=== PATIENT | female | born 1965 | race Caucasian/White ===

== ENCOUNTER 2024-05-25 10:00 | Day surgery (SDC) | payer OTHER ==
[~2024-05-25 10:00] MED LIST: DEXAMETHASONE SOD PHOSPHATE 4 MG/ML 1 ML VIAL ONE; MIDAZOLAM 2 MG/2 ML VIAL ONE; ONDANSETRON 4 MG/2 ML VIAL ONE; ROPIVACAINE 5 MG/ML 30 ML VIAL ONE; fentaNYL (PF) 50 MCG/ML 2 ML AMP ONE
[2024-05-25] MEDS ORDERED: DEXAMETHASONE SOD PHOSPHATE 4 MG/ML 1 ML VIAL ONE (10:27)
[2024-05-25] MEDS ORDERED: POTASSIUM CHLORIDE 20 MEQ/100 ML BAG IVPB ONE (12:30)
[2024-05-25] MEDS ORDERED: SODIUM CHLORIDE 0.9% 500 ML BAG ONE (12:30)
[2024-05-25] MEDS ORDERED: LACTATED RINGERS 1,000 ML BAG ONE (12:30)
[2024-05-25] MEDS ORDERED: ceFAZolin 1,000 MG VIAL ONE (12:30)
[2024-05-25] MEDS ORDERED: THROMBIN (BOVINE) 5,000 UNIT VIAL ONE (12:30)
[2024-05-25] MEDS ORDERED: fentaNYL (PF) 50 MCG/ML 2 ML AMP ONE (12:34)
[2024-05-25] MEDS ORDERED: ROPIVACAINE 5 MG/ML 30 ML VIAL ONE (12:34)
[2024-05-25] MEDS ORDERED: MIDAZOLAM 2 MG/2 ML VIAL ONE (12:34)
[2024-05-25] MEDS ORDERED: PROPOFOL 10 MG/ML 20 ML VIAL IV ONE (12:34)
[2024-05-25] MEDS ORDERED: KETAMINE HCL IN 0.9 % NACL 50 MG/5 ML SYRINGE ONE (12:34)
[2024-05-25] MEDS ORDERED: HEPARIN SODIUM,PORCINE 5,000 UNIT/ML 1 ML VIAL ONE (12:34)
--- NOTE | 2024-07-10 09:49 | P.OP ---
Date of Procedure: 05/25/24 Preoperative Diagnosis: Chronic kidney disease Postoperative Diagnosis: Same Procedure(s) Performed: Left upper extremity radiocephalic fistula creation Anesthesia: SANTHOSH Surgeon: Shravan Osorio Estimated Blood Loss (ml): 5 Pathology: none sent Condition: stable Disposition: PACU Description of Procedure: After written and informed consent was obtained from the patient the patient was brought to the operative suite and laid in a supine position. The left arm was prepped and draped in the usual sterile fashion after appropriate anesthesia was performed per the anesthesiologist. Utilizing ultrasound the cephalic vein was visualized and marked and shown to be good size. A small vertical incision was then created with a 15 blade scalpel just proximal to the wrist and dissection was carried down to the radial artery which was dissected free in a circumferential manner. Proximal distal control was then obtained with vessel loops. Attention was then placed back to the cephalic vein which was located and dissected free in a circumferential manner distally to the wrist. At the wrist it was ligated with silk suture. Further dissection was carried around the vein and the vein was brought over to the radial artery. Serial dilation was then performed on the vein and good backbleeding was noted. Patient was administered 3000 units of heparin and the radial artery was clamped at the proximal and distal aspect. Utilizing 11 blade scalpel and arteriotomy was created and extended with Pott Hayes scissors. There was good brisk backbleeding noted from the radial artery and pulsatile blood flow visualized from the proximal aspect. The vein was then spatulated and an end-to-side anastomosis was created with a 7-0 Prolene suture. Prior to last sutures being placed the control was released from the vein revealing good backbleeding and distal control on the radial artery was released revealing good back flow. The proximal control was then released and good pulsatile blood flow was visualized in the fistula and final sutures were secured. The area was copiously irrigated with antibiotic solution. Hemostasis was assured. The vessels were then interrogated with Doppler which demonstrated good multiphasic signal distal to the anastomosis as well as positive bruit within the vein consistent with good fistula creation. Under ultrasound there was pulsatile flow noted in the cephalic vein. The incision was then closed in a multilayer fashion. The skin was cleansed and dressings were placed. Patient does procedure well and was sent to PACU for recovery.
== END 2024-05-25 15:00 ==
LOC: OR 10:00
PROVIDERS: ATTEND Surgery
DX: N18.5 Chronic kidney disease, stage 5
CPT/HCPCS: 64415

== ENCOUNTER 2025-01-31 19:12 | Inpatient (IN) | payer OTHER ==
[2025-01-31 20:19] LABS: Basophils # (A) 0.03 10*3/uL (0.00-0.10); Basophils % (A) 0.5 %; Eosinophils # (A) 0.08 10*3/uL (0.04-0.35); Eosinophils % (A) 1.3 %; HCT 26.7 % (37.2-46.3); HGB 8.7 g/dL (12.0-15.0); Lymphocytes # (A) 0.64 10*3/uL (0.90-5.00); Lymphocytes % (A) 10.3 %; MCH 32.3 pg (27.0-32.0); MCHC 32.6 g/dL (32.0-37.0); MCV 99.3 fL (80.0-97.0); Mean Platelet Volume 10.8 fL (9.5-12.2); Monocytes # (A) 0.59 10*3/uL (0.20-1.00); Monocytes % (A) 9.5 %; Neutrophils # (A) 4.84 10*3/uL (1.80-7.70); Neutrophils % (A) 77.6 %; Platelet Count 178 10*3/uL (140-440); RBC 2.69 10*6/uL (4.10-5.20); RDW 14.6 % (11.5-14.5); WBC 6.23 10*3/uL (4.50-10.00)
--- NOTE | 2025-01-31 20:37 | ED ---
General Adult HPI - General Chief complaint: Shortness of Breath Stated complaint: Abn Labs Time Seen by Provider: 01/31/25 19:52 Source: patient, family Mode of arrival: ambulatory Limitations: no limitations - History of Present Illness Initial comments: Patient is a pleasant 59-year-old female, past medical history COPD, ESRD on dialysis Tuesday presenting today for shortness of breath and fever. Patient states that throughout the week she has had body aches and a dry cough nonproductive of sputum. Today ther home health nurse was checking on her and found her pulse ox to be 76 to 85% on room air. Patient does not wear oxygen at home. Patient's daughter was called and brought her to the hospital. Patient states today is her first day of fever. Last dose of Tylenol was at 10 AM this morning. Denies missed rounds of dialysis. She denies chest pain, changes in vision, focal numbness or weakness, abdominal pain, nausea, vomiting, diarrhea, dysuria, urinary frequency. Denies new lower extremity swelling. - Related Data Home Medications Medication Instructions Recorded Confirmed ALPRAZolam [Xanax] 0.25 mg PO BID PRN 02/01/25 02/01/25 Albuterol Sulfate [Albuterol 2 puff PO RT-Q4H PRN 02/01/25 02/01/25 Sulfate Hfa] Calcium Acetate [Phoslo] 667 mg PO TID-W/MEALS 02/01/25 02/01/25 Fluticasone Propionate [Flonase 1 spray EA NOSTRIL BID PRN 02/01/25 02/01/25 Allergy Relief] Metoprolol Tartrate [Lopressor] 50 mg PO BID 02/01/25 02/01/25 Mometasone/Formoterol [Dulera 100 2 puff INHALATION RT-BID 02/01/25 02/01/25 Mcg-5 Mcg Inhaler] Nicotine 21Mg/24Hr Patch [Habitrol] 1 patch TRANSDERM DAILY 02/01/25 02/01/25 Sertraline [Zoloft] 50 mg PO DAILY 02/01/25 02/01/25 Simvastatin [Zocor] 20 mg PO HS 02/01/25 02/01/25 Terazosin [Hytrin] 1 mg PO HS 02/01/25 02/01/25 Tiotropium 2.5 Mcg/Puff [Spiriva 2 puff INHALATION RT-DAILY 02/01/25 02/01/25 Respimat 2.5 Mcg] Torsemide [Demadex] 40 mg PO DAILY 02/01/25 02/01/25 allopurinoL [Zyloprim] 100 mg PO HS 02/01/25 02/01/25 amLODIPine [Norvasc] 5 mg PO DAILY 02/01/25 02/01/25 Allergies Allergy/AdvReac Type Severity Reaction Status Date / Time cefprozil [From Cefzil] Allergy Anaphylaxis Verified 02/01/25 10:20 cephalexin [From Keflex] Allergy Anaphylaxis Verified 02/01/25 10:20 ciprofloxacin [From Cipro] Allergy Anaphylaxis Verified 02/01/25 10:20 guaifenesin [From Entex [place]] Allergy Per Verified 02/01/25 10:20 [place] [facility] iodine Allergy Anaphylaxis Verified 02/01/25 10:20 phenylephrine [From Entex [place]] Allergy Per Verified 02/01/25 10:20 [place] [facility] phenylpropanolamine Allergy Per Verified 02/01/25 10:20 [From Entex [place]] [place] [facility] shellfish derived [Shellfish] Allergy Per Verified 02/01/25 10:20 [place] [facility] sodium bicarbonate Allergy Per Verified 02/01/25 10:20 [place] [facility] Review of Systems ROS Statement: Those systems with pertinent positive or pertinent negative responses have been documented in the HPI. ROS Other: All systems not noted in ROS Statement are negative. Past Medical History Past Medical History: COPD, Renal Disease Additional Past Medical History / Comment(s): HD MWF Additional Past Surgical History / Comment(s): dental, D&C Past Psychological History: No Psychological Hx Reported Smoking Status: Current every day smoker Past Alcohol Use History: None Reported Past Drug Use History: None Reported General Exam - General Exam Comments Initial Comments: PE: CONSTITUTIONAL: No apparent distress, ill-appearing, nontoxic SKIN: Warm, dry, no jaundice, hives or petechiae EYES: Pupils are equally round, extraocular movements intact without nystagmus, clear conjunctiva, non-icteric sclera HENT: Normocephalic, atraumatic, moist mucus membranes, oropharynx clear without exudates NECK: , Full range of motion, normal appearance PULMONARY: Rales and wheezes throughout the right lower and midlung field, scant wheezes in the bilateral lung donahue normal excursion, no accessory muscle use and no stridor CARDIOVASCULAR: Tachycardia, regular rate, rhythm, normal S1 and S2. No appreciated murmurs, rubs or gallops. Strong radial pulses with intact distal perfusion. No lower extremity edema GASTROINTESTINAL: Soft, active bowel sounds throughout, non-tender, non- distended, no palpable masses, no rebound or guarding. No hepatosplenomegaly GENITOURINARY: MUSCULOSKELETAL: Extremities have no gross deformity, no edema, redness, or swelling. No calf swelling NEUROLOGIC:_a/o x 3, GCS 15, normal mentation and speech. Moves all extremities x 4 without motor or sensory deficit PSYCHIATRIC:_normal mood and affect, thought process is clear and linear Limitations: no limitations Course Vital Signs 01/31/25 01/31/25 01/31/25 19:32 20:05 21:28 Temperature 101.4 F H Pulse Rate 104 H 75 Respiratory 18 22 Rate Blood Pressure 144/84 O2 Sat by Pulse 88 L Oximetry 01/31/25 01/31/25 01/31/25 21:50 21:52 22:06 Temperature Pulse Rate 78 80 82 Respiratory Rate Blood Pressure O2 Sat by Pulse Oximetry 01/31/25 23:19 Temperature 99.4 F Pulse Rate 99 Respiratory 18 Rate Blood Pressure 140/63 O2 Sat by Pulse 93 L Oximetry EKG Findings - EKG Comments: EKG Findings:: Sinus tachycardia, rate 102 bpm intervals within acceptable limits, normal axis, no ST elevations or depressions, some T wave flattening in the anterior leads no arrhythmia Medical Decision Making - Medical Decision Making Was pt. sent in by a medical professional or institution (, PA, MACHINE PULLER OVER, urgent care, hospital, or snf...) When possible be specific @ -No Did you speak to anyone other than the patient for history (EMS, parent, family, police, friend...)? What history was obtained from this source @I spoke with patient's daughter who provided history, stating patient's home health nurse called the patient's daughter and told her the patient's pulse ox between 76 to 85% Did you review nursing and triage notes (agree or disagree)? Why? @ -I reviewed and agree with nursing and triage notes Were old charts reviewed (outside hosp., previous admission, EMS record, old EKG, old radiological studies, urgent care reports/EKG's, snf records)? Report findings @ -Medical records reviewed- I reviewed patient's medical records to review whether or not patient has ever received zosyn in the past, to ensure pt has not had a hx of anaphylaxis to this, (given anaphylactic reactions to cephalosporins), however on medical record review it does not appear pt has received zosyn here in the past Differential Diagnosis (chest pain, altered mental status, abdominal pain women, abdominal pain men, vaginal bleeding, weakness, fever, dyspnea, syncope, headache, dizziness, GI bleed, back pain, seizure, CVA, palpatations, mental health, musculoskeletal)? Differential Dyspnea: Coronary syndrome, arrhythmia, tamponade, asthma, COPD, pulmonary embolism, pneumonia, pneumothorax, pulmonary effusion, anaphylaxis, diabetic ketoacidosis, flailed chest, pulmonary contusion, diaphragmatic rupture, anemia, neuromuscular, this is not meant to be an all-inclusive list. EKG interpreted by me (3pts min.). @ -As above X-rays interpreted by me (1pt min.). Please see my interpretation in MDM below CT interpreted by me (1pt min.). @ -None done U/S interpreted by me (1pt. min.). @ -None done What testing was considered but not performed or refused? (CT, X-rays, U/S, labs)? Why? @ -None What meds were considered but not given or refused? Why? @ -None Did you discuss the management of the patient with other professionals (professionals i.e. , PA, MACHINE PULLER OVER, lab, RT, psych nurse, social services, cotton weigher operator, teacher, commercial account officer, field nurse case manager)? Give summary @ -No Was smoking cessation discussed for >3mins.? @ -No Was critical care preformed (if so, how long)? Yes 35 minutes Were there social determinants of health that impacted care today? How? (Homelessness, low income, unemployed, alcoholism, drug addiction, transportation, low edu. Level, literacy, decrease access to med. care, care home, rehab)? @ -No Was there de-escalation of care discussed even if they declined (Discuss DNR or withdrawal of care, Hospice)? @ -No What co-morbidities impacted this encounter? (DM, HTN, Smoking, COPD, CAD, Cancer, CVA, ARF, Chemo, Hep., AIDS, mental health diagnosis, sleep apnea, morbid obesity)? COPD, ESRD on dialysis Was patient admitted / discharged? Hospital course, mention meds given and route, prescriptions, significant lab abnormalities, going to OR and other pertinent info. Admission- This is a pleasant 59-year-old female presenting today for fever, cough, body aches. Patient was hypoxic upon arrival, pulse ox 88% on room air, mildly tachycardic. Febrile with temp 101.4 degrees. On assessment patient is on 2 L ox nasal cannula reason comfort resting comfortably, rales and wheezes in the right lung field with wheezes in the left lung field, no lower extremity edema. Sepsis labs ordered. Patient does have multiple allergies of anaphylactic reactions to ciprofloxacin and cephalosporins. She states she has had Zosyn in the past so this will be trialed. Personally reviewed labs, patient is influenza positive, Tamiflu was ordered. Chest x-ray was reviewed I see no evidence of consolidations, no pneumonia noted. On reassessment patient endorses improvement in shortness of breath, breath sounds are improved, wheezing decreased on repeat auscultation of lungs. ue to new oxygen requirement and severity of symptoms patient will be admitted for observation. Case was discussed with Dr. Molina who kindly accepted patient for admission. Undiagnosed new problem with uncertain prognosis? @ -No Drug Therapy requiring intensive monitoring for toxicity (Heparin, Nitro, Insulin, Cardizem)? @ -No Were any procedures done? @ -No Diagnosis/symptom? @Acute hypoxic respiratory failure, influenza Acute, or Chronic, or Acute on Chronic? Acute Uncomplicated (without systemic symptoms) or Complicated (systemic symptoms)? @Complicated Side effects of treatment? @ -No Exacerbation, Progression, or Severe Exacerbation? @ -No Poses a threat to life or bodily function? How? (Chest pain, [place], [place], pneumonia, PE, COPD, DKA, ARF, appy, cholecystitis, CVA, Diverticulitis, Homicidal, Suicidal, threat to staff... and all critical care pts) @Yes - Lab Data Result diagrams: 02/02/25 03:44 02/02/25 03:38 Lab Results 01/31/25 01/31/25 01/31/25 Range/Units 20:11 20:11 20:11 WBC 6.23 (4.50-10.00) 10*3/uL RBC 2.69 L (4.10-5.20) 10*6/uL Hgb 8.7 L (12.0-15.0) g/dL Hct 26.7 L (37.2-46.3) % MCV 99.3 H (80.0-97.0) fL MCH 32.3 H (27.0-32.0) pg MCHC 32.6 (32.0-37.0) g/dL Plt Count 178 (140-440) 10*3/uL MPV 10.8 (9.5-12.2) fL Immature Gran % (Auto) 0.8 % Neutrophils % 77.6 % Lymphocytes % 10.3 % Monocytes % 9.5 % Eosinophils % 1.3 % Basophils % 0.5 % Immature Gran # 0.05 H (0.00-0.04) 10*3/uL Neutrophils # 4.84 (1.80-7.70) 10*3/uL Lymphocytes # 0.64 L (0.90-5.00) 10*3/uL Monocytes # 0.59 (0.20-1.00) 10*3/uL Eosinophils # 0.08 (0.04-0.35) 10*3/uL Basophils # 0.03 (0.00-0.10) 10*3/uL PT 11.0 (10.0-12.5) sec INR 1.0 (<1.2) APTT 19.8 L (22.0-30.0) sec Plasma Lactic Acid Deyvi (0.7-2.0) mmol/L Influenza Type A (PCR) Detected A (Not Detectd) Influenza Type B (PCR) Not Detected (Not Detectd) RSV (PCR) Not Detected (Not Detectd) SARS-CoV-2 (PCR) Not Detected (Not Detectd) 01/31/25 Range/Units 20:45 WBC (4.50-10.00) 10*3/uL RBC (4.10-5.20) 10*6/uL Hgb (12.0-15.0) g/dL Hct (37.2-46.3) % MCV (80.0-97.0) fL MCH (27.0-32.0) pg MCHC (32.0-37.0) g/dL Plt Count (140-440) 10*3/uL MPV (9.5-12.2) fL Immature Gran % (Auto) % Neutrophils % % Lymphocytes % % Monocytes % % Eosinophils % % Basophils % % Immature Gran # (0.00-0.04) 10*3/uL Neutrophils # (1.80-7.70) 10*3/uL Lymphocytes # (0.90-5.00) 10*3/uL Monocytes # (0.20-1.00) 10*3/uL Eosinophils # (0.04-0.35) 10*3/uL Basophils # (0.00-0.10) 10*3/uL PT (10.0-12.5) sec INR (<1.2) APTT (22.0-30.0) sec Plasma Lactic Acid Deyvi 1.0 (0.7-2.0) mmol/L Influenza Type A (PCR) (Not Detectd) Influenza Type B (PCR) (Not Detectd) RSV (PCR) (Not Detectd) SARS-CoV-2 (PCR) (Not Detectd) Disposition Clinical Impression: Acute hypoxic respiratory failure, Influenza A, COPD with exacerbation Disposition: ADMITTED IP TO THIS HOSP Condition: Stable
[2025-01-31 20:55] LABS: Influenza A Detected (Not Detectd); Influenza B Not Detected (Not Detectd); RSV Not Detected (Not Detectd)
--- NOTE | 2025-01-31 21:03 | XR ---
EXAMINATION TYPE: XR chest 2V DATE OF EXAM: 01/31/2025 8:52 PM COMPARISON: None. CLINICAL INDICATION: Female, 59 years old with history of difficulty breathing: Shortness of breath TECHNIQUE: XR chest 2V views of the chest are obtained. FINDINGS: Scattered senescent parenchymal changes noted. Hyperinflation compatible with COPD. No evidence for infiltrate. No evidence for atelectasis. Heart size is stable. Mediastinal structures are stable and grossly unremarkable. No evidence for hilar prominence. Degenerative changes dorsal spine. IMPRESSION: 1. No evidence for acute pulmonary disease. [facility], , 01/31/2025 9:01 PM
[2025-01-31 21:09] LABS: Partial Thromboplastin Time 19.8 sec (22.0-30.0)
[2025-01-31] MEDS: IPRATROPIUM 0.5 MG/2.5 ML NEBU INHALATION STA (21:27)
[2025-01-31] MEDS: ALBUTEROL NEBULIZED 2.5 MG/3 ML INHALATION SCH (21:27)
[2025-01-31] MEDS ORDERED: PNEUMONIA PROTOCOL UTILIZED 1 EACH MISC PO PRN (21:41)
[2025-01-31] MEDS: OSELTAMIVIR 75 MG CAP PO STA (21:50)
[2025-01-31] MEDS: PIPERACILLIN-TAZOBACTAM 3.375 GM in SODIUM CHLORIDE 0.9% 100 ML IVPB STA (21:50)
[2025-01-31] MEDS: ACETAMINOPHEN TAB 325 MG TAB PO STA (21:50)
[2025-01-31] MEDS: methylPREDNISolone SOD SUCCI 125 MG/2 ML VIAL IV STA (21:56)
[2025-01-31] MEDS ORDERED: NALOXONE 0.4 MG/ML 1 ML VIAL IVP PRN (22:05)
[2025-01-31 22:39] LABS: ALT 8 U/L (4-34); AST 18 U/L (14-36); African American GFR (CKD) 16 (>60 ml/min/1.73 sqM); Albumin 3.9 g/dL (3.5-5.0); Alkaline Phosphatase 52 U/L (38-126); Anion Gap 13 mmol/L; Blood Urea Nitrogen 24 mg/dL (7-17); Calcium 9.6 mg/dL (8.4-10.2); Carbon Dioxide 25 mmol/L (22-30); Chloride 98 mmol/L (98-107); Glucose 102 mg/dL (74-99); Non-African American GFR(CKD) 14 (>60 ml/min/1.73 sqM); Sodium 136 mmol/L (137-145); Total Bilirubin 0.5 mg/dL (0.2-1.3); Total Protein 7.1 g/dL (6.3-8.2)
--- NOTE | 2025-01-31 22:46 | P.HPIM ---
History of Present Illness H&P Date: 01/31/25 Patient is a 59-year-old female with COPD (not on home oxygen), ESRD (Tuesday) here for evaluation of shortness of breath and fever. Patient reported that she has been having shortness of breath with associated body aches and a nonproductive cough since Tuesday. Today her home health nurse evaluated her and her pulse ox was found to be 76 to 85% on room air. Her daughter was called and they decided to bring her to the ED to seek care. Patient also reported that she took Tylenol this morning as she was experiencing a fever that started today. She denied chest pain, palpitations, extremity swelling, nausea, vomiting, diarrhea, dysuria, urinary frequency, focal weakness, recent travel or recent hospitalization. She was exposed to her daughter and granddaughter that were having cough and congestion since last week. On admission: Vitals: Temp 101.4, ID 104, RR 18, BP 144/84, O2 saturation 88% on room air Labs: WBC 6.2, hemoglobin 8.7, MCV 99.3, lactic acid 1. Coagulation panel normal except PTT which is 19.8 that is low. Cepheid 4 Plex positive for influenza type A. Imaging: Chest x-ray showed no acute cardiopulmonary process. ED documentation reviewed. Zosyn IVPB, IV Solu-Medrol, Tamiflu p.o., DuoNebs initiated in the ED. Review of systems: Pertinent positives and negatives as discussed in HPI, a complete review of systems was performed and all other systems are negative. Social history: Tobacco: current smoker. 1/2 ppd 40 years. Intends to quit Alcohol: denied intake history Recreational drugs: denied history of recreational or illicit use Travel: no prolonged travel history Physical examination: Vital signs reviewed General: non toxic, no distress, appears at stated age, nasal cannula Derm: no unusual rashes/lesions, warm Head: atraumatic, normocephalic, symmetric Eyes: EOMI, anicteric sclera, pupils equal round reactive to light ENT: Nose and ears atraumatic Neck: No cervical lymphadenopathy, trachea midline, supple Mouth: no lip lesion, mucus membranes moist Cardiovascular: S1S2 reg, no murmur Lungs: diffuse expiratory wheezing, no accessory muscle use Abdominal: soft, nondistended, nontender to palpation, no guarding Ext: muscle strength 5 out of 5 in all 4 extremities grossly, no gross muscle atrophy, no contractures, positive dorsalis pedis pulse bilateral, no edema Neuro: CN II-XI grossly intact, no gross focal neuro deficits Psych: Alert and oriented x 3, appropriate affect and mood Assessment/Plan: 59-year-old female with COPD not on home oxygen, and ESRD here for evaluation of acute hypoxic respiratory failure secondary to COPD exacerbation. Found to be influenza A positive on 7 4 Plex. The patient is admitted with an anticipated less than 2 midnight stay for evaluation of COPD exacerbation and influenza A pneumonia Active: #. Acute hypoxic respiratory failure secondary to Acute COPD exacerbation #. sepsis 2/ Influenza A #. Nicotine dependence -Chest x-ray shows no acute cardiopulmonary process, no consolidations noted. -Patient febrile on admission but had normal WBC count -Supportive oxygen as need. Goal 88-92% O2 saturation - Zosyn IVPB given once in the ED. -Continue with Tamiflu 75 mg BID for total of 5 days. 1 dose given in the ED -Continue with Acetaminophen 650mg P every 4 hours as needed for fever -DuoNeb inhaler QID and PRN -Solumedrol 125 mg IV given once in the ED. Continue with prednisone 40 mg p.o. daily -Plumicort 0.5mg inh twice daily -Blood culture, sputum culture, legionella antigen ordered in the ED -Monitor CBC -Nicotine patch offered. Patient deferred. -Counseled on benefits of smoking cessation particularly for COPD #. Chronic anemia at baseline - Hemoglobin 8.7 - Patient shows no signs of bleeding or bruising and is hemodynamically stable - Monitor CBC Chronic conditions: #. ESRD on hemodialysis - Monitor renal function and electrolytes - Consult nephrology for hemodialysis F: Oral intake E: Monitor electrolytes and renal function N: Renal diet A: Ambulate as needed DVT ppx: Lovenox 30 mg subcu daily GI ppx: Protonix 40 mg p.o. daily CODE STATUS: Full Discussed with: Patient Anticipated discharge place: Home Maile Shields MD PGY-1 Internal Medicine Dictation was produced using [employer] dictation software. please excuse any grammatical, word or spelling errors. I have seen and evaluated the patient today. I Discussed the case with the resident and agree with the resident's findings I edited the assessment and plan as necessary as documented in the resident's note. Past Medical History Past Medical History: COPD, Renal Disease Additional Past Medical History / Comment(s): HD MWF Additional Past Surgical History / Comment(s): dental, D&C Past Psychological History: No Psychological Hx Reported Smoking Status: Current every day smoker Past Alcohol Use History: None Reported Past Drug Use History: None Reported Medications and Allergies Allergies Allergy/AdvReac Type Severity Reaction Status Date / Time cefprozil [From Cefzil] Allergy Anaphylaxis Verified 01/31/25 19:28 cephalexin [From Keflex] Allergy Anaphylaxis Verified 01/31/25 19:28 ciprofloxacin [From Cipro] Allergy Anaphylaxis Verified 01/31/25 19:28 iodine Allergy Anaphylaxis Verified 01/31/25 19:28 Physical Exam Vitals: Vital Signs Temp Pulse Resp BP Pulse Ox 01/31/25 21:50 78 01/31/25 21:28 75 01/31/25 20:05 22 01/31/25 19:32 101.4 F H 104 H 18 144/84 88 L Intake and Output 01/31/25 01/31/25 01/31/25 06:59 14:59 22:59 Other: Weight 83.915 kg Results CBC & Chem 7: 01/31/25 20:11 01/31/25 21:47 Labs: Abnormal Lab Results - Last 24 Hours (Table) 01/31/25 01/31/25 01/31/25 Range/Units 20:11 20:11 20:11 RBC 2.69 L (4.10-5.20) 10*6/uL Hgb 8.7 L (12.0-15.0) g/dL Hct 26.7 L (37.2-46.3) % MCV 99.3 H (80.0-97.0) fL MCH 32.3 H (27.0-32.0) pg Immature Gran # 0.05 H (0.00-0.04) 10*3/uL Lymphocytes # 0.64 L (0.90-5.00) 10*3/uL APTT 19.8 L (22.0-30.0) sec Influenza Type A (PCR) Detected A (Not Detectd)
[2025-02-01] MEDS: LACTATED RINGERS 1,000 ML IV SCH ×2 (00:16→00:19)
[2025-02-01 03:46] LABS: Basophils # (A) 0.01 10*3/uL (0.00-0.10); Basophils % (A) 0.2 %; Eosinophils # (A) 0.01 10*3/uL (0.04-0.35); Eosinophils % (A) 0.2 %; HCT 24.2 % (37.2-46.3); HGB 7.7 g/dL (12.0-15.0); Lymphocytes # (A) 0.39 10*3/uL (0.90-5.00); Lymphocytes % (A) 7.4 %; MCH 32.6 pg (27.0-32.0); MCHC 31.8 g/dL (32.0-37.0); MCV 102.5 fL (80.0-97.0); Mean Platelet Volume 10.3 fL (9.5-12.2); Monocytes # (A) 0.11 10*3/uL (0.20-1.00); Monocytes % (A) 2.1 %; Neutrophils # (A) 4.64 10*3/uL (1.80-7.70); Neutrophils % (A) 88.4 %; Platelet Count 144 10*3/uL (140-440); RBC 2.36 10*6/uL (4.10-5.20); RDW 14.8 % (11.5-14.5); WBC 5.25 10*3/uL (4.50-10.00)
[2025-02-01 04:04] LABS: African American GFR (CKD) 15 (>60 ml/min/1.73 sqM); Anion Gap 14 mmol/L; Blood Urea Nitrogen 24 mg/dL (7-17); Calcium 9.7 mg/dL (8.4-10.2); Carbon Dioxide 25 mmol/L (22-30); Chloride 97 mmol/L (98-107); Glucose 170 mg/dL (74-99); Non-African American GFR(CKD) 13 (>60 ml/min/1.73 sqM); Sodium 136 mmol/L (137-145)
[2025-02-01] MEDS: PANTOPRAZOLE 40 MG TABLET PO SCH (06:49)
[2025-02-01] MEDS: BUDESONIDE 0.5 MG/2 ML NEBU INHALATION SCH (07:54)
[2025-02-01] MEDS: IPRATROPIUM-ALBUTEROL 3 ML NEB INHALATION SCH (07:54)
[2025-02-01] MEDS ORDERED: SYMBICORT 160-4.5 MCG INHALER INHALATION SCH (08:00)
[2025-02-01] MEDS: OSELTAMIVIR 75 MG CAP PO SCH (08:21)
[2025-02-01] MEDS: predniSONE 20 MG TAB PO SCH (08:21)
--- NOTE | 2025-02-01 09:20 | P.NPCON ---
History of Present Illness - Reason for Consult end stage renal disease - History of Present Illness Patient is a 59-year-old female with end-stage renal disease on hemodialysis on Tuesday schedule at the [facility] dialysis unit. Patient is admitted to the hospital with complaints of shortness of breath and fever. She tested positive for influenza A. No history of diarrhea nausea or vomiting. Patient has a left forearm AV graft. Past Medical History Past Medical History: COPD, Hypertension, Renal Disease Additional Past Medical History / Comment(s): HD MWF History of Any Multi-Drug Resistant Organisms: None Reported Additional Past Surgical History / Comment(s): dental, D&C Past Anesthesia/Blood Transfusion Reactions: Unable to Obtain Past Psychological History: No Psychological Hx Reported Smoking Status: Current every day smoker Past Alcohol Use History: None Reported Past Drug Use History: None Reported Medications and Allergies Allergies Allergy/AdvReac Type Severity Reaction Status Date / Time cefprozil [From Cefzil] Allergy Anaphylaxis Verified 01/31/25 19:28 cephalexin [From Keflex] Allergy Anaphylaxis Verified 01/31/25 19:28 ciprofloxacin [From Cipro] Allergy Anaphylaxis Verified 01/31/25 19:28 iodine Allergy Anaphylaxis Verified 01/31/25 19:28 Physical Exam Vitals: Vital Signs Temp Pulse Pulse Resp BP BP Pulse Ox 02/01/25 08:10 96 02/01/25 07:55 95 94 L 02/01/25 07:15 98.0 F 101 H 18 148/77 94 L 02/01/25 00:39 93 L 02/01/25 00:00 98.9 F 101 H 20 132/69 93 L 01/31/25 23:19 99.4 F 99 18 140/63 93 L 01/31/25 22:06 82 01/31/25 21:52 80 01/31/25 21:50 78 01/31/25 21:28 75 01/31/25 20:05 22 01/31/25 19:32 101.4 F H 104 H 18 144/84 88 L Intake and Output 01/31/25 02/01/25 02/01/25 22:59 06:59 14:59 Intake Total 240 Balance 240 Intake: Oral 240 Other: # Voids 3 Weight 83.915 kg 83.915 kg Patient is awake, comfortable, no acute distress Examination of the heart S1 and S2 Examination of the lungs bilateral breath sounds are heard Abdomen is soft nontender obese Examination of lower extremities shows no significant edema Left forearm AV graft is functional [employer] exam grossly intact Results - Lab Results Most recent lab results Calcium 9.7 mg/dL (8.4-10.2) 02/01/25 03:21 02/01/25 03:21 02/01/25 03:21 Assessment and Plan Assessment: 1. End-stage renal disease on hemodialysis on Tuesday schedule via left forearm AV graft 2. Influenza A 3. Acute hypoxic respiratory failure 4. CKD mineral bone disorder 5. Anemia of chronic disease, no active bleeding noted Plan: Hemodialysis today Add Aranesp DC IV fluids Continue Tamiflu. Thank you for the consultation. We will continue to follow the patient with you during her hospitalization.
[2025-02-01] MEDS ORDERED: FLUTICASONE NASAL 50MCG/SPRAY 16GM BTL EA NOSTRIL PRN (10:25)
[2025-02-01] MEDS: SERTRALINE 50 MG TAB PO SCH (10:45)
[2025-02-01] MEDS: NICOTINE 21MG/24HR PATCH TRANSDERM SCH (10:45)
[2025-02-01] MEDS: TORSEMIDE 20 MG TAB PO SCH (10:45)
[2025-02-01] MEDS: METOPROLOL TARTRATE 50 MG TAB PO SCH (10:45)
[2025-02-01] MEDS: ACETAMINOPHEN TAB 325 MG TAB PO PRN (10:46)
[2025-02-01] MEDS: amLODIPine 5 MG TAB PO SCH (10:46)
[2025-02-01] MEDS: ENOXAPARIN 30 MG/0.3 ML SYRINGE SQ SCH (11:21)
--- NOTE | 2025-02-01 11:54 | P.PN ---
Subjective Progress Note Date: 02/01/25 Hospital Course: Patient is a 59-year-old female with COPD (not on home oxygen), ESRD (Tuesday) here for evaluation of shortness of breath and fever. Patient reported that she has been having shortness of breath with associated body aches and a nonproductive cough since Tuesday. Today her home health nurse evaluated her and her pulse ox was found to be 76 to 85% on room air. Her daughter was called and they decided to bring her to the ED to seek care. Patient also reported that she took Tylenol this morning as she was experiencing a fever that started today. She denied chest pain, palpitations, extremity swelling, nausea, vomiting, diarrhea, dysuria, urinary frequency, focal weakness, recent travel or recent hospitalization. She was exposed to her daughter and granddaughter that were having cough and congestion since last week. On admission: Vitals: Temp 101.4, [place] 104, RR 18, BP 144/84, O2 saturation 88% on room air Labs: WBC 6.2, hemoglobin 8.7, MCV 99.3, lactic acid 1. Coagulation panel normal except PTT which is 19.8 that is low. Cepheid 4 Plex positive for influenza type A. Imaging: Chest x-ray showed no acute cardiopulmonary process. ED documentation reviewed. Zosyn IVPB, IV Solu-Medrol, Tamiflu p.o., DuoNebs initiated in the ED. Subjective: Patient seen and examined at bedside. No acute events overnight. Pertinent positives and negatives as discussed above, a complete review of systems was performed and all other systems are negative. Vitals: Signs Reviewed Physical Exam: General: nontoxic, no distress, appears at stated age, obese Derm: warm, dry, intact Head: atraumatic, normocephalic, symmetric Eyes: EOMI, anicteric sclera Mouth: no lip lesion, mucus membranes moist Cardiovascular: S1 S2 reg, no murmur, rubs, or gallops Lungs: b/l expiratory wheezing, diffuse b/l rhonchi, no rales, no accessory muscle use Abdominal: soft, non-tender to palpataion, no appreciable organomegaly Extremities: no gross muscle atrophy, no edema, no contractures Neuro: Alert, Oriented, CNII-XII grossly intact, gait normal Psych: well appearing, appropriate affect Data Received Today: Pertinent Labs: Hgb 8.7 => 7.7, MCV 102.5, BMP creatinine remained stable at 5.9, BUN 24, sodium 136, glucose 170 Imaging: N/A Assessment and Plan: Patient is a 59-year-old female with COPD not on home oxygen, and ESRD here for evaluation of sepsis 2/2 acute hypoxic respiratory failure secondary due to COPD exacerbation and positive influenza A. #. Acute hypoxic respiratory failure secondary to acute COPD exacerbation #. Sepsis 2/2 Influenza A #. Nicotine dependence Chest x-ray shows no acute cardiopulmonary process, no consolidations noted. Patient febrile on admission but had normal WBC count Supportive oxygen as needed. Goal 88-92% O2 saturation Continue with Tamiflu 30 mg BID for total of 4 days. 1 dose given in the ED DuoNeb inhaler QID and PRN Solumedrol 125 mg IV given once in the ED. Continue with prednisone 40 mg PO QD, day #1 Plumicort 0.5mg inh twice daily, Spiriva Respimat 2.5 mcg Acetaminophen 650mg q4hr prn for fever Blood culture, sputum culture, legionella pending Nicotine patch, 1 patch transdermally daily Counseled on benefits of smoking cessation particularly for COPD #. Anemia of chornic disease #. Macrocytosis Likely due to ESRD Hemoglobin 8.7 => 7.7 Patient shows no signs of bleeding B12, folate ordered Follow-up CBC #. ESRD on hemodialysis (MWF) Monitor renal function and electrolytes, Torsemide 20 mg daily Calcium acetate 667 mg PO TID w/ with meals Follow-up BMP Nephrology note reviewed, scheduled for hemodialysis today, dc fluids Chronic: #. Hypertension: amlodipine 5 mg PO QD, metoprolol tartrate 50 mg PO BID, doxa zosin 1 mg PO HS #. Anxiety: Zoloft 50 mg PO QD, Xanax 0.25 mg PO BID prn #. Gout: Allopurinol 100 mg PO HS #. Hyperlipidemia: Atorvastatin 10 mg PO HS DVT ppx: Lovenox 30 mg subcu daily GI ppx: Protonix 40 mg p.o. daily Code status: FULL CODE Anticipated discharge place: Pending clinical course Anticipated discharge time: Pending clinical course Na Curran MD PGY-1 IM Dictation was produced using [employer] software. please excuse any grammatical, word or spelling errors. I have seen and evaluated the patient today. Discussed with the resident and agree with the residents finding and plan as documented in the resident's note. Changes highlighted in blue font. Objective - Vital Signs Vital signs: Vital Signs Temp 98.9 F 02/01/25 00:00 Pulse 101 H 02/01/25 00:00 Resp 20 02/01/25 00:00 BP 132/69 02/01/25 00:00 Pulse Ox 93 L 02/01/25 00:39 FiO2 Intake & Output 01/31/25 01/31/25 02/01/25 06:59 18:59 06:59 Weight 83.915 kg - Labs CBC & Chem 7: 02/01/25 03:21 02/01/25 03:21 Labs: Abnormal Lab Results - Last 24 Hours (Table) 01/31/25 01/31/25 01/31/25 Range/Units 20:11 20:11 20:11 RBC 2.69 L (4.10-5.20) 10*6/uL Hgb 8.7 L (12.0-15.0) g/dL Hct 26.7 L (37.2-46.3) % MCV 99.3 H (80.0-97.0) fL MCH 32.3 H (27.0-32.0) pg MCHC (32.0-37.0) g/dL RDW (11.5-14.5) % Immature Gran # 0.05 H (0.00-0.04) 10*3/uL Lymphocytes # 0.64 L (0.90-5.00) 10*3/uL Monocytes # (0.20-1.00) 10*3/uL Eosinophils # (0.04-0.35) 10*3/uL APTT 19.8 L (22.0-30.0) sec Sodium (137-145) mmol/L Chloride (98-107) mmol/L BUN (7-17) mg/dL Creatinine (0.52-1.04) mg/dL Glucose (74-99) mg/dL Influenza Type A (PCR) Detected A (Not Detectd) 01/31/25 02/01/25 02/01/25 Range/Units 21:47 03:21 03:21 RBC 2.36 L (4.10-5.20) 10*6/uL Hgb 7.7 L (12.0-15.0) g/dL Hct 24.2 L (37.2-46.3) % MCV 102.5 H (80.0-97.0) fL MCH 32.6 H (27.0-32.0) pg MCHC 31.8 L (32.0-37.0) g/dL RDW 14.8 H (11.5-14.5) % Immature Gran # 0.09 H (0.00-0.04) 10*3/uL Lymphocytes # 0.39 L (0.90-5.00) 10*3/uL Monocytes # 0.11 L (0.20-1.00) 10*3/uL Eosinophils # 0.01 L (0.04-0.35) 10*3/uL APTT (22.0-30.0) sec Sodium 136 L 136 L (137-145) mmol/L Chloride 97 L (98-107) mmol/L BUN 24 H 24 H (7-17) mg/dL Creatinine 3.34 H 3.59 H (0.52-1.04) mg/dL Glucose 102 H 170 H (74-99) mg/dL Influenza Type A (PCR) (Not Detectd)
[2025-02-01] MEDS: CALCIUM ACETATE 667 MG TAB PO SCH (12:13)
[2025-02-01] MEDS: DARBEPOETIN ALFA 60 MCG/0.3 ML SYRINGE SQ SCH (12:14)
[2025-02-01] MEDS: ALPRAZolam 0.25 MG TAB PO PRN (13:09)
[2025-02-01] MEDS: SYMBICORT 80-4.5 MCG INHALER INHALATION SCH (20:19)
[2025-02-01] MEDS: DOXAZOSIN 1 MG TAB PO SCH (21:06)
[2025-02-01] MEDS: ATORVASTATIN 10 MG TAB PO SCH (21:06)
[2025-02-01] MEDS: allopurinoL 100 MG TAB PO SCH (21:06)
[2025-02-02 05:45] LABS: ALT 7 U/L (4-34); AST 27 U/L (14-36); African American GFR (CKD) 25 (>60 ml/min/1.73 sqM); Albumin 3.7 g/dL (3.5-5.0); Albumin/Globulin Ratio 1.2; Alkaline Phosphatase 56 U/L (38-126); Anion Gap 12 mmol/L; Blood Urea Nitrogen 21 mg/dL (7-17); Calcium 9.2 mg/dL (8.4-10.2); Carbon Dioxide 27 mmol/L (22-30); Chloride 97 mmol/L (98-107); Glucose 97 mg/dL (74-99); Magnesium 1.9 mg/dL (1.6-2.3); Non-African American GFR(CKD) 22 (>60 ml/min/1.73 sqM); Sodium 136 mmol/L (137-145); Total Bilirubin 0.4 mg/dL (0.2-1.3); Total Protein 6.7 g/dL (6.3-8.2)
[2025-02-02 06:07] LABS: Basophils # (A) 0.02 10*3/uL (0.00-0.10); Basophils % (A) 0.3 %; HCT 25.3 % (37.2-46.3); HGB 7.8 g/dL (12.0-15.0); Lymphocytes # (A) 0.86 10*3/uL (0.90-5.00); Lymphocytes % (A) 13.2 %; MCH 31.7 pg (27.0-32.0); MCHC 30.8 g/dL (32.0-37.0); MCV 102.8 fL (80.0-97.0); Mean Platelet Volume 10.5 fL (9.5-12.2); Monocytes # (A) 0.75 10*3/uL (0.20-1.00); Monocytes % (A) 11.5 %; Neutrophils # (A) 4.81 10*3/uL (1.80-7.70); Neutrophils % (A) 73.8 %; Platelet Count 163 10*3/uL (140-440); RBC 2.46 10*6/uL (4.10-5.20); WBC 6.52 10*3/uL (4.50-10.00)
[2025-02-02 06:13] LABS: Potassium 3.9 mmol/L (3.5-5.1)
[2025-02-02] MEDS ORDERED: TIOTROPIUM 2.5 MCG INHALER INHALATION SCH (08:00)
[2025-02-02] MEDS: OSELTAMIVIR 30 MG CAP PO SCH (08:02)
--- NOTE | 2025-02-02 11:54 | P.PN ---
Subjective Progress Note Date: 02/02/25 Hospital Course: Patient is a 59-year-old female with COPD (not on home oxygen), ESRD (Tuesday) here for evaluation of shortness of breath and fever. Patient reported that she has been having shortness of breath with associated body aches and a nonproductive cough since Tuesday. Today her home health nurse evaluated her and her pulse ox was found to be 76 to 85% on room air. Her daughter was called and they decided to bring her to the ED to seek care. Patient also reported that she took Tylenol this morning as she was experiencing a fever that started today. She denied chest pain, palpitations, extremity swelling, nausea, vomiting, diarrhea, dysuria, urinary frequency, focal weakness, recent travel or recent hospitalization. She was exposed to her daughter and granddaughter that were having cough and congestion since last week. On admission: Vitals: Temp 101.4, [place] 104, RR 18, BP 144/84, O2 saturation 88% on room air Labs: WBC 6.2, hemoglobin 8.7, MCV 99.3, lactic acid 1. Coagulation panel normal except PTT which is 19.8 that is low. Cepheid 4 Plex positive for influenza type A. Imaging: Chest x-ray showed no acute cardiopulmonary process. ED documentation reviewed. Zosyn IVPB, IV Solu-Medrol, Tamiflu PO, DuoNebs initiated in the ED. Subjective: Patient seen and examined at bedside. No acute events overnight. States she still feels short of breath on exertion. Pertinent positives and negatives as discussed above, a complete review of systems was performed and all other systems are negative. Vitals: Signs Reviewed Physical Exam: General: nontoxic, no distress, appears at stated age, obese Derm: warm, dry, intact Head: atraumatic, normocephalic, symmetric Eyes: EOMI, anicteric sclera Mouth: no lip lesion, mucus membranes moist Cardiovascular: S1 S2 reg, no murmur, rubs, or gallops Lungs: b/l expiratory wheezing, diffuse b/l rhonchi, no rales, no accessory muscle use Abdominal: soft, non-tender to palpataion, no appreciable organomegaly Extremities: no gross muscle atrophy, no edema, no contractures Neuro: Alert, Oriented, CNII-XII grossly intact, gait normal Psych: well appearing, appropriate affect Data Received Today: Pertinent Labs: Hgb 7.8, MCV 102.8, BUN, creatinine 2.34, B12 wnl at 493 Imaging: N/A Assessment and Plan: Patient is a 59-year-old female with COPD not on home oxygen, and ESRD here for evaluation of sepsis 2/2 acute hypoxic respiratory failure secondary due to COPD exacerbation and positive influenza A. #. Acute hypoxic respiratory failure secondary to sepsis, influenza A, acute COPD exacerbation (not on home oxygen) #. Nicotine dependence Chest x-ray shows no acute cardiopulmonary process, no consolidations noted. Patient febrile on admission but had normal WBC count Supportive oxygen as needed. Currently on 2 L nasal cannula goal 88-92% O2 saturation Continue with Tamiflu 30 mg BID 2/4 days. DuoNeb inhaler QID and PRN Solumedrol 125 mg IV given once in the ED. Continue with prednisone 40 mg PO QD, day #2 Plumicort 0.5mg inh twice daily, home Spiriva and Dulera on hold Acetaminophen 650mg q4hr prn for fever Blood culture showing no growth after 24 hours Preliminary sputum gram stain displaying moderate polymorphonuclear leukocytes, moderate gram-positive cocci, moderate gram-negative bacilli Urine legionella negative Nicotine patch, 1 patch transdermally daily Counseled on benefits of smoking cessation particularly for COPD #. Anemia of chornic disease #. Macrocytosis Likely due to ESRD Hemoglobin 8.7 => 7.8 Patient shows no signs of bleeding B12 493, folate pending Follow-up CBC #. ESRD on hemodialysis (MWF) #. Secondary hyperparathyroidism Monitor renal function and electrolytes Torsemide 20 mg daily Calcium acetate 667 mg PO TID w/ with meals Follow-up [facility] Nephrology following, pending recs Chronic: #. Hypertension: amlodipine 5 mg PO QD, metoprolol tartrate 50 mg PO BID, doxazosin 1 mg PO HS #. Anxiety: Zoloft 50 mg PO QD, Xanax 0.25 mg PO BID prn #. Gout: Allopurinol 100 mg PO HS #. Hyperlipidemia: Atorvastatin 10 mg PO HS DVT ppx: Lovenox 30 mg subcu daily GI ppx: Protonix 40 mg p.o. daily Code status: FULL CODE Anticipated discharge place: Pending clinical course Anticipated discharge time: Pending clinical course Na Curran MD PGY-1 IM Dictation was produced using [employer] dictation software. please excuse any grammatical, word or spelling errors. I saw and evaluated the patient during the torres and critical portions of this encounter, and discussed the case in detail with the resident author of this note, I agree with the Assessment and Plan, and my changes, if any, are highlighted in blue. Objective - Vital Signs Vital signs: Vital Signs Temp 98.2 F 02/02/25 00:59 Pulse 84 02/02/25 00:59 Resp 17 02/02/25 00:59 BP 125/69 02/02/25 00:59 Pulse Ox 95 02/02/25 00:59 FiO2 Intake & Output 02/01/25 02/01/25 02/02/25 06:59 18:59 06:59 Intake Total 240 400 Output Total 3400 Balance 240 -3000 Weight 83.915 kg Intake: Oral 240 Hemodialysis 400 Output: Hemodialysis 1900 Hemodialysis Net Amount 1500 Other: Voiding Method Toilet # Voids 3 1 - Labs CBC & Chem 7: 02/02/25 03:44 02/02/25 03:38 Labs: Abnormal Lab Results - Last 24 Hours (Table) 02/02/25 02/02/25 Range/Units 03:38 03:44 RBC 2.46 L (4.10-5.20) 10*6/uL Hgb 7.8 L (12.0-15.0) g/dL Hct 25.3 L (37.2-46.3) % MCV 102.8 H (80.0-97.0) fL MCHC 30.8 L (32.0-37.0) g/dL RDW 15.0 H (11.5-14.5) % Immature Gran # 0.08 H (0.00-0.04) 10*3/uL Lymphocytes # 0.86 L (0.90-5.00) 10*3/uL Eosinophils # 0.00 L (0.04-0.35) 10*3/uL Sodium 136 L (137-145) mmol/L Chloride 97 L (98-107) mmol/L BUN 21 H (7-17) mg/dL Creatinine 2.34 H (0.52-1.04) mg/dL Microbiology - Last 24 Hours (Table) 01/31/25 20:45 Blood Culture - Preliminary Blood 02/01/25 08:01 Gram Stain - Preliminary Sputum
--- NOTE | 2025-02-02 14:37 | P.PN ---
Subjective Progress Note Date: 02/02/25 Patient is a 59-year-old female with end-stage renal disease on hemodialysis on Tuesday schedule at the [place] dialysis unit. Patient is admitted to the hospital with complaints of shortness of breath and fever. She tested positive for influenza A. feeling better voerall today but still with some difficulties breathing. Patient is awake, comfortable, no acute distress Examination of the heart S1 and S2 Examination of the lungs bilateral breath sounds are heard Abdomen is soft nontender obese Examination of lower extremities shows no significant edema Left forearm AV graft is functional [employer] exam grossly intact Objective - Vital Signs Vital signs: Vital Signs Temp 97.6 F 02/02/25 13:28 Pulse 83 02/02/25 13:28 Resp 16 02/02/25 13:28 BP 142/75 02/02/25 13:28 Pulse Ox 94 L 02/02/25 13:28 FiO2 Intake & Output 02/01/25 02/02/25 02/02/25 18:59 06:59 18:59 Intake Total 400 Output Total 3400 Balance -3000 Intake: Hemodialysis 400 Output: Hemodialysis 1900 Hemodialysis Net Amount 1500 Other: Voiding Method Toilet # Voids 1 - Labs CBC & Chem 7: 02/02/25 03:44 02/02/25 03:38 Labs: Abnormal Lab Results - Last 24 Hours (Table) 02/02/25 02/02/25 Range/Units 03:38 03:44 RBC 2.46 L (4.10-5.20) 10*6/uL Hgb 7.8 L (12.0-15.0) g/dL Hct 25.3 L (37.2-46.3) % MCV 102.8 H (80.0-97.0) fL MCHC 30.8 L (32.0-37.0) g/dL RDW 15.0 H (11.5-14.5) % Immature Gran # 0.08 H (0.00-0.04) 10*3/uL Lymphocytes # 0.86 L (0.90-5.00) 10*3/uL Eosinophils # 0.00 L (0.04-0.35) 10*3/uL Sodium 136 L (137-145) mmol/L Chloride 97 L (98-107) mmol/L BUN 21 H (7-17) mg/dL Creatinine 2.34 H (0.52-1.04) mg/dL Microbiology - Last 24 Hours (Table) 02/01/25 08:01 Gram Stain - Preliminary Sputum Sputum Culture - Preliminary 01/31/25 20:45 Blood Culture - Preliminary Blood Assessment and Plan Assessment: 1. End-stage renal disease on hemodialysis on Tuesday schedule via left forearm AV graft 2. Influenza A 3. Acute hypoxic respiratory failure 4. CKD mineral bone disorder 5. Anemia of chronic disease, no active bleeding noted Plan: Hemodialysis per MWF schedule On Aranesp Continue Tamiflu and steroids
[2025-02-02] MEDS: polyethylene glycoL 3350 17 GM POWD.PACK PO SCH (17:48)
[2025-02-03 04:22] LABS: Basophils # (A) 0.01 10*3/uL (0.00-0.10); Basophils % (A) 0.2 %; HCT 24.7 % (37.2-46.3); HGB 7.8 g/dL (12.0-15.0); Lymphocytes # (A) 0.91 10*3/uL (0.90-5.00); Lymphocytes % (A) 13.8 %; MCH 32.9 pg (27.0-32.0); MCHC 31.6 g/dL (32.0-37.0); MCV 104.2 fL (80.0-97.0); Mean Platelet Volume 10.2 fL (9.5-12.2); Monocytes # (A) 0.55 10*3/uL (0.20-1.00); Monocytes % (A) 8.3 %; Neutrophils # (A) 5.04 10*3/uL (1.80-7.70); Neutrophils % (A) 76.3 %; Platelet Count 169 10*3/uL (140-440); RBC 2.37 10*6/uL (4.10-5.20); RDW 14.8 % (11.5-14.5)
[2025-02-03 04:41] LABS: ALT 9 U/L (4-34); AST 24 U/L (14-36); African American GFR (CKD) 17 (>60 ml/min/1.73 sqM); Albumin 3.5 g/dL (3.5-5.0); Albumin/Globulin Ratio 1.2; Alkaline Phosphatase 55 U/L (38-126); Anion Gap 12 mmol/L; Blood Urea Nitrogen 36 mg/dL (7-17); Calcium 9.1 mg/dL (8.4-10.2); Carbon Dioxide 26 mmol/L (22-30); Chloride 97 mmol/L (98-107); Globulin 2.9 g/dL; Glucose 103 mg/dL (74-99); Non-African American GFR(CKD) 15 (>60 ml/min/1.73 sqM); Phosphorus 4.4 mg/dL (2.5-4.5); Potassium 3.8 mmol/L (3.5-5.1); Sodium 135 mmol/L (137-145); Total Bilirubin 0.4 mg/dL (0.2-1.3); Total Protein 6.4 g/dL (6.3-8.2)
--- NOTE | 2025-02-03 08:56 | P.PN ---
Subjective Progress Note Date: 02/03/25 Hospital Course: Patient is a 59-year-old female with COPD (not on home oxygen), ESRD (Tuesday) here for evaluation of shortness of breath and fever. Patient reported that she has been having shortness of breath with associated body aches and a nonproductive cough since Tuesday. Today her home health nurse evaluated her and her pulse ox was found to be 76 to 85% on room air. Her daughter was called and they decided to bring her to the ED to seek care. Patient also reported that she took Tylenol this morning as she was experiencing a fever that started today. She denied chest pain, palpitations, extremity swelling, nausea, vomiting, diarrhea, dysuria, urinary frequency, focal weakness, recent travel or recent hospitalization. She was exposed to her daughter and granddaughter that were having cough and congestion since last week. On admission: Vitals: Temp 101.4, [place] 104, RR 18, BP 144/84, O2 saturation 88% on room air Labs: WBC 6.2, hemoglobin 8.7, MCV 99.3, lactic acid 1. Coagulation panel normal except PTT which is 19.8 that is low. Cepheid 4 Plex positive for influenza type A. Imaging: Chest x-ray showed no acute cardiopulmonary process. ED documentation reviewed. Zosyn IVPB, IV Solu-Medrol, Tamiflu PO, DuoNebs initiated in the ED. Subjective: Patient seen and examined at bedside. No acute events overnight. States she still feels short of breath on exertion but much improved. Pertinent positives and negatives as discussed above, a complete review of systems was performed and all other systems are negative. Vitals: Signs Reviewed Physical Exam: General: nontoxic, no distress, appears at stated age, obese Derm: warm, dry, intact Head: atraumatic, normocephalic, symmetric Eyes: EOMI, anicteric sclera Mouth: no lip lesion, mucus membranes moist Cardiovascular: S1 S2 reg, no murmur, rubs, or gallops Lungs: b/l end-expiratory wheezing, no accessory muscle use Abdominal: soft, non-tender to palpataion, no appreciable organomegaly Extremities: no gross muscle atrophy, no edema, no contractures Neuro: Alert, Oriented, CNII-XII grossly intact, gait normal Psych: well appearing, appropriate affect Assessment and Plan: Patient is a 59-year-old female with COPD not on home oxygen, and ESRD here for evaluation of sepsis 2/2 acute hypoxic respiratory failure secondary due to COPD exacerbation and positive influenza A. #. Acute hypoxic respiratory failure secondary to sepsis, influenza A, acute COPD exacerbation (not on home oxygen) #. Nicotine dependence Chest x-ray shows no acute cardiopulmonary process, no consolidations noted. Patient febrile on admission but had normal WBC count Supportive oxygen as needed. Currently on 2 L nasal cannula goal 88-92% O2 saturation Continue with Tamiflu 30 mg BID 3/4 days. DuoNeb inhaler QID and PRN Solumedrol 125 mg IV given once in the ED. Continue with prednisone 40 mg PO QD, day #2 Plumicort 0.5mg inh twice daily, home Spiriva and Dulera on hold Acetaminophen 650mg q4hr prn for fever Blood culture showing no growth after 48 hours Preliminary sputum gram stain displaying moderate polymorphonuclear leukocytes, moderate gram-positive cocci, moderate gram-negative bacilli Urine legionella negative Nicotine patch, 1 patch transdermally daily Counseled on benefits of smoking cessation particularly for COPD -Home oxygen evaluation tomorrow then discharge home #. Anemia of chornic disease #. Macrocytosis Likely due to ESRD Hemoglobin 8.7 => 7.8 Patient shows no signs of bleeding B12 493, folate pending Follow-up CBC #. ESRD on hemodialysis (MWF) #. Secondary hyperparathyroidism Monitor renal function and electrolytes Torsemide 20 mg daily Calcium acetate 667 mg PO TID w/ with meals Follow-up [facility] Nephrology following, pending recs Chronic: #. Hypertension: amlodipine 5 mg PO QD, metoprolol tartrate 50 mg PO BID, doxazosin 1 mg PO HS #. Anxiety: Zoloft 50 mg PO QD, Xanax 0.25 mg PO BID prn #. Gout: Allopurinol 100 mg PO HS #. Hyperlipidemia: Atorvastatin 10 mg PO HS DVT ppx: Lovenox 30 mg subcu daily GI ppx: Protonix 40 mg p.o. daily Code status: FULL CODE Anticipated discharge place: Pending clinical course Anticipated discharge time: Pending clinical course Dictation was produced using [employer] dictation software. please excuse any grammatical, word or spelling errors. Objective - Vital Signs Vital signs: Vital Signs Temp 97.8 F 02/03/25 07:27 Pulse 88 05/04/25 07:48 Resp 18 02/03/25 07:48 BP 135/88 02/03/25 07:27 Pulse Ox 93 L 02/03/25 07:37 FiO2 Intake & Output 02/02/25 02/03/25 02/03/25 18:59 06:59 18:59 Intake Total 1620 Balance 1620 Intake: Oral 1620 Other: Voiding Method Toilet # Voids 4 5 - Labs CBC & Chem 7: 02/03/25 04:04 02/03/25 04:04 Labs: Abnormal Lab Results - Last 24 Hours (Table) 02/03/25 02/03/25 Range/Units 04:04 04:04 RBC 2.37 L (4.10-5.20) 10*6/uL Hgb 7.8 L (12.0-15.0) g/dL Hct 24.7 L (37.2-46.3) % MCV 104.2 H (80.0-97.0) fL MCH 32.9 H (27.0-32.0) pg MCHC 31.6 L (32.0-37.0) g/dL RDW 14.8 H (11.5-14.5) % Immature Gran # 0.09 H (0.00-0.04) 10*3/uL Eosinophils # 0.00 L (0.04-0.35) 10*3/uL Sodium 135 L (137-145) mmol/L Chloride 97 L (98-107) mmol/L BUN 36 H (7-17) mg/dL Creatinine 3.25 H (0.52-1.04) mg/dL Glucose 103 H (74-99) mg/dL Microbiology - Last 24 Hours (Table) 01/31/25 20:45 Blood Culture - Preliminary Blood 02/01/25 08:01 Gram Stain - Preliminary Sputum Sputum Culture - Preliminary
--- NOTE | 2025-02-03 12:38 | P.PN ---
Subjective Progress Note Date: 02/03/25 Patient is a 59-year-old female with end-stage renal disease on hemodialysis on Tuesday schedule at the [place] dialysis unit. Patient is admitted to the hospital with complaints of shortness of breath and fever. She tested positive for influenza A. No new complaints. Patient is awake, comfortable, no acute distress Examination of the heart S1 and S2 Examination of the lungs bilateral breath sounds are heard Abdomen is soft nontender obese Examination of lower extremities shows no significant edema Left forearm AV graft is functional Objective - Vital Signs Vital signs: Vital Signs Temp 97.8 F 02/03/25 07:27 Pulse 88 02/03/25 07:48 Resp 18 02/03/25 07:48 BP 135/88 02/03/25 07:27 Pulse Ox 94 L 02/03/25 11:16 FiO2 Intake & Output 02/02/25 02/03/25 02/03/25 18:59 06:59 18:59 Intake Total 1620 Balance 1620 Intake: Oral 1620 Other: Voiding Method Toilet # Voids 4 5 - Labs CBC & Chem 7: 02/03/25 04:04 02/03/25 04:04 Labs: Abnormal Lab Results - Last 24 Hours (Table) 02/03/25 02/03/25 Range/Units 04:04 04:04 RBC 2.37 L (4.10-5.20) 10*6/uL Hgb 7.8 L (12.0-15.0) g/dL Hct 24.7 L (37.2-46.3) % MCV 104.2 H (80.0-97.0) fL MCH 32.9 H (27.0-32.0) pg MCHC 31.6 L (32.0-37.0) g/dL RDW 14.8 H (11.5-14.5) % Immature Gran # 0.09 H (0.00-0.04) 10*3/uL Eosinophils # 0.00 L (0.04-0.35) 10*3/uL Sodium 135 L (137-145) mmol/L Chloride 97 L (98-107) mmol/L BUN 36 H (7-17) mg/dL Creatinine 3.25 H (0.52-1.04) mg/dL Glucose 103 H (74-99) mg/dL Microbiology - Last 24 Hours (Table) 02/01/25 08:01 Gram Stain - Final Sputum Sputum Culture - Final 01/31/25 20:45 Blood Culture - Preliminary Blood Assessment and Plan Assessment: 1. End-stage renal disease on hemodialysis on Tuesday schedule via left forearm AV graft 2. Influenza A 3. Acute hypoxic respiratory failure 4. CKD mineral bone disorder 5. Anemia of chronic disease, no active bleeding noted Plan: Hemodialysis per MWF schedule On Aranesp Continue Tamiflu and steroids
[2025-02-03] MEDS: IPRATROPIUM-ALBUTEROL 3 ML NEB INHALATION PRN (21:02)
[2025-02-04 08:19] LABS: Basophils # (A) 0.01 10*3/uL (0.00-0.10); Basophils % (A) 0.1 %; HCT 26.6 % (37.2-46.3); HGB 8.5 g/dL (12.0-15.0); Lymphocytes # (A) 1.63 10*3/uL (0.90-5.00); Lymphocytes % (A) 21.2 %; MCH 32.8 pg (27.0-32.0); MCV 102.7 fL (80.0-97.0); Mean Platelet Volume 10.1 fL (9.5-12.2); Monocytes # (A) 0.63 10*3/uL (0.20-1.00); Monocytes % (A) 8.2 %; Neutrophils # (A) 5.32 10*3/uL (1.80-7.70); Neutrophils % (A) 69.3 %; Platelet Count 183 10*3/uL (140-440); RBC 2.59 10*6/uL (4.10-5.20); RDW 14.8 % (11.5-14.5); WBC 7.68 10*3/uL (4.50-10.00)
[2025-02-04 08:22] LABS: African American GFR (CKD) 15 (>60 ml/min/1.73 sqM); Anion Gap 11 mmol/L; Blood Urea Nitrogen 52 mg/dL (7-17); Calcium 9.2 mg/dL (8.4-10.2); Carbon Dioxide 26 mmol/L (22-30); Chloride 100 mmol/L (98-107); Glucose 88 mg/dL (74-99); Magnesium 1.8 mg/dL (1.6-2.3); Non-African American GFR(CKD) 13 (>60 ml/min/1.73 sqM); Potassium 4.1 mmol/L (3.5-5.1); Sodium 137 mmol/L (137-145)
--- NOTE | 2025-02-04 12:16 | P.DS ---
Providers Date of admission: 01/31/25 21:44 Discharge Diagnosis: Acute hypoxic respiratory failure secondary to sepsis, influenza A, acute COPD exacerbation (not on home oxygen) Nicotine dependence Anemia chronic disease Microcytosis ESRD on hemodialysis Tuesday Secondary hyperparathyroidism Hypertension Anxiety Gout Hyperlipidemia Hospital Course: Patient is a 59-year-old female with COPD (not on home oxygen), ESRD (Tuesday) here for evaluation of shortness of breath and fever. Patient reported that she has been having shortness of breath with associated body aches and a nonproductive cough since Tuesday. Today her home health nurse evaluated her and her pulse ox was found to be 76 to 85% on room air. Her daughter was called and they decided to bring her to the ED to seek care. Patient also reported that she took Tylenol this morning as she was experiencing a fever that started today. She denied chest pain, palpitations, extremity swelling, nausea, vomiting, diarrhea, dysuria, urinary frequency, focal weakness, recent travel or recent hospitalization. She was exposed to her daughter and granddaughter that were having cough and congestion since last week. On admission: Vitals: Temp 101.4, MO 104, RR 18, BP 144/84, O2 saturation 88% on room air Labs: WBC 6.2, hemoglobin 8.7, MCV 99.3, lactic acid 1. Coagulation panel normal except PTT which is 19.8 that is low. Cepheid 4 Plex positive for influenza type A. Imaging: Chest x-ray showed no acute cardiopulmonary process. ED documentation reviewed. Zosyn IVPB, IV Solu-Medrol, Tamiflu PO, DuoNebs initiated in the ED. Patient is admitted for further evaluation for acute hypoxic respiratory failure secondary to sepsis, influenza A, acute COPD exacerbation. Patient was placed on oral antiviral for influenza A. She has been on breathing treatment and oral steroids for her COPD exacerbation. For ESRD she was receiving regularly scheduled dialysis. Patient symptoms improved however she still required to be on 2-3 L of oxygen. Patient's home O2 evaluation requires her to be on oxygen at home. She is being discharged with the remainder of her oral antiviral course of oral steroid. She is a patient at [facility]. I spoke with the physician about needing home oxygen along with finishing her course of medications here. She is hemodynamically stable can be discharged today back to [facility]. Patient seen and examined at bedside. Vital signs reviewed and stable. Physical Exam: General: nontoxic, no distress, appears at stated age, obese Derm: warm, dry, intact Head: atraumatic, normocephalic, symmetric Eyes: EOMI, anicteric sclera Mouth: no lip lesion, mucus membranes moist Cardiovascular: S1 S2 reg, no murmur, rubs, or gallops Lungs: b/l end-expiratory wheezing, no accessory muscle use Abdominal: soft, non-tender to palpataion, no appreciable organomegaly Extremities: no gross muscle atrophy, no edema, no contractures Neuro: Alert, Oriented, CNII-XII grossly intact, gait normal Psych: well appearing, appropriate affect A total of greater than 30 minutes of time were spent preparing this complex discharge summary. Patient was discharged on February 04, 2025 at 10:15 AM. Na Curran MD PGY-1 IM Dictation was produced using [employer] dictation software. please excuse any grammatical, word or spelling errors. I saw and evaluated the patient during the torres and critical portions of this encounter, and discussed the case in detail with the resident author of this note, I agree with the Assessment and Plan, and my changes, if any, are highlighted in blue. Expected date of discharge: 02/04/25 Attending physician: Katarzyna Molina MD Consults: 01/31/25 21:41 Consult Physician Routine Consulting Provider: Radha Roberson Consult Reason/Comments: ESRD Do you want consulting provider notified?: Yes, Notify in am Primary care physician: Yogesh Lee MD Patient Condition at Discharge: Stable Plan - Discharge Summary Discharge Rx Participant: Yes New Discharge Prescriptions: Continue Torsemide [Demadex] 40 mg PO DAILY Terazosin [Hytrin] 1 mg PO HS Tiotropium 2.5 Mcg/Puff [Spiriva Respimat 2.5 Mcg] 2 puff INHALATION RT-DAILY Mometasone/Formoterol [Dulera 100 Mcg-5 Mcg Inhaler] 2 puff INHALATION RT-BID Metoprolol Tartrate [Lopressor] 50 mg PO BID amLODIPine [Norvasc] 5 mg PO DAILY Calcium Acetate [PhosLo] 667 mg PO TID-W/MEALS ALPRAZolam [Xanax] 0.25 mg PO BID PRN PRN Reason: Anxiety Simvastatin [Zocor] 20 mg PO HS Sertraline [Zoloft] 50 mg PO DAILY Nicotine 21Mg/24Hr Patch [Habitrol] 1 patch TRANSDERM DAILY Fluticasone Propionate [Flonase Allergy Relief] 1 spray EA NOSTRIL BID PRN PRN Reason: Congestion allopurinoL [Zyloprim] 100 mg PO HS Albuterol Sulfate [Albuterol Sulfate Hfa] 2 puff PO RT-Q4H PRN PRN Reason: Shortness Of Breath Discharge Medication List ALPRAZolam [Xanax] 0.25 mg PO BID PRN 02/01/25 [History] Albuterol Sulfate [Albuterol Sulfate Hfa] 2 puff PO RT-Q4H PRN 02/01/25 [History] Calcium Acetate [PhosLo] 667 mg PO TID-W/MEALS 02/01/25 [History] Fluticasone Propionate [Flonase Allergy Relief] 1 spray EA NOSTRIL BID PRN 02/01/25 [History] Metoprolol Tartrate [Lopressor] 50 mg PO BID 02/01/25 [History] Mometasone/Formoterol [Dulera 100 Mcg-5 Mcg Inhaler] 2 puff INHALATION RT-BID 02/01/25 [History] Nicotine 21Mg/24Hr Patch [Habitrol] 1 patch TRANSDERM DAILY 02/01/25 [History] Sertraline [Zoloft] 50 mg PO DAILY 02/01/25 [History] Simvastatin [Zocor] 20 mg PO HS 02/01/25 [History] Terazosin [Hytrin] 1 mg PO HS 02/01/25 [History] Tiotropium 2.5 Mcg/Puff [Spiriva Respimat 2.5 Mcg] 2 puff INHALATION RT-DAILY 02/01/25 [History] Torsemide [Demadex] 40 mg PO DAILY 02/01/25 [History] allopurinoL [Zyloprim] 100 mg PO HS 02/01/25 [History] amLODIPine [Norvasc] 5 mg PO DAILY 02/01/25 [History] Follow up Appointment(s)/Referral(s): Yogesh Lee MD [Primary Care Provider] - 1-2 days (Office will call you with your appointment.) Nguyen Buitrago MD [STAFF PHYSICIAN] - 02/27/25 2:15 pm Patient Instructions/Handouts: COPD (Chronic Obstructive Pulmonary Disease) (DC) Discharge Disposition: TRANSFER TO SNF/ECF
--- NOTE | 2025-02-04 12:19 | P.PN ---
Subjective Progress Note Date: 02/04/25 Patient is a 59-year-old female with end-stage renal disease on hemodialysis on Tuesday schedule at the [place] dialysis unit. Patient is admitted to the hospital with complaints of shortness of breath and fever. She tested positive for influenza A. No new complaints. Objective - Vital Signs Vital signs: Vital Signs Temp 98.2 F 02/04/25 07:23 Pulse 73 02/04/25 07:23 Resp 18 02/04/25 07:23 BP 134/72 02/04/25 07:23 Pulse Ox 94 L 02/04/25 07:23 FiO2 Intake & Output 02/03/25 02/04/25 02/04/25 18:59 06:59 18:59 Intake Total 1080 Balance 1080 Intake: Oral 1080 Other: Voiding Method Toilet # Voids 4 - Exam Patient is awake, comfortable, no acute distress Examination of the heart S1 and S2 Examination of the lungs bilateral breath sounds are heard Abdomen is soft nontender obese Examination of lower extremities shows no significant edema Left forearm AV graft is functional but slightly tender - Labs CBC & Chem 7: 02/04/25 07:35 02/04/25 07:35 Labs: Abnormal Lab Results - Last 24 Hours (Table) 02/04/25 02/04/25 Range/Units 07:35 07:35 RBC 2.59 L (4.10-5.20) 10*6/uL Hgb 8.5 L (12.0-15.0) g/dL Hct 26.6 L (37.2-46.3) % MCV 102.7 H (80.0-97.0) fL MCH 32.8 H (27.0-32.0) pg RDW 14.8 H (11.5-14.5) % Immature Gran # 0.09 H (0.00-0.04) 10*3/uL Eosinophils # 0.00 L (0.04-0.35) 10*3/uL BUN 52 H (7-17) mg/dL Creatinine 3.53 H (0.52-1.04) mg/dL Microbiology - Last 24 Hours (Table) 01/31/25 20:45 Blood Culture - Preliminary Blood 02/01/25 08:01 Gram Stain - Final Sputum Sputum Culture - Final Assessment and Plan Assessment: 1. End Stage Renal Disease on Hemodialysis Tuesday, Tuesday, Tuesday via Left forearm AV graft 2. Anemia of Chronic Disease 3. Chronic Kidney Disease mineral bone disorder 4. Acute Hypoxic Respiratory Failure secondary to Influenza A Plan: Hemodialysis per regular schedule MWF Recommended follow-up with Dr. Osorio regarding graft Aranesp recommended, patient refused Continue Tamiflu & steroids Will likely be discharged today I have seen and examined the patient with resident and agree with A&P as written. HD today.
[2025-02-04 18:43] VITALS: BP 173/78; PULSE 85; RESP 18; TEMP 97.6
== END 2025-02-04 19:26 | DRG 871 ==
LOC: EC 19:12 → 4SSUR 21:44 → OBSVTOIN 21:44 → 4SSUR 23:02
PROVIDERS: ADMIT Internal Medicine; ATTEND Internal Medicine
PROC: 5A1D70Z Performance of Urinary Filtration, Intermittent, Less than 6 Hours Per Day (ICD-10-PCS; principal; 2025-02-01)
DX: A41.89 Other specified sepsis (principal); J96.01 Acute respiratory failure with hypoxia; N18.6 End stage renal disease; I12.0 Hypertensive chronic kidney disease with stage 5 chronic kidney disease or end stage renal disease; N25.81 Secondary hyperparathyroidism of renal origin; D63.1 Anemia in chronic kidney disease; Z99.2 Dependence on renal dialysis; J44.1 Chronic obstructive pulmonary disease with (acute) exacerbation; E66.9 Obesity, unspecified; R65.20 Severe sepsis without septic shock; Z68.31 Body mass index [BMI] 31.0-31.9, adult; E78.5 Hyperlipidemia, unspecified; F17.210 Nicotine dependence, cigarettes, uncomplicated; F41.9 Anxiety disorder, unspecified; J10.1 Influenza due to other identified influenza virus with other respiratory manifestations; M10.9 Gout, unspecified; M89.8X9 Other specified disorders of bone, unspecified site; Z79.51 Long term (current) use of inhaled steroids; Z79.899 Other long term (current) drug therapy
CPT/HCPCS: 36415; 71046; 80048; 80053; 82607; 82747; 83605; 83735; 84100; 84484; 85025; 85610; 85730; 87040; 87070; 87205; 87449; 87636; 90935; 93005; 94640; 94760; 96365; 96375; 99291